=== PATIENT | male | born 1975 | race Caucasian/White ===

== ENCOUNTER → 2018-12-02 | Outpatient (CLI) | payer OTHER ==
--- NOTE | 2018-12-02 08:46 | RADIOLOGY IMAGING REPORT ---
FAC[facility] PATIENT NAME: Cordell Martin : 1975 MR: [id number] V: [id number] EXAM DATE: ORDERING PHYSICIAN: LOBITO TRIPP TECHNOLOGIST: Location: [facility] - [place], [place] Patient: Cordell Martin : 1975 Visit/Account:[id number] Date of Sevice: 12/02/2018 Testicular ultrasound. HISTORY: Right epididymal head mass on examination. COMPARISON: None. Right testicular length: 4.7 cm. Right intratesticular blood flow: Normal. Right hydrocele: Small. Right varicocele: No. Right microlithiasis: No. Right epididymal head thickness: 2.0 cm. No right intratesticular masses. Left testicular length: 4.6 cm. Left testicular blood flow: Normal. Left hydrocele: Small. Left varicocele: Small. Left microlithiasis: No. Left epididymal head thickness: 2.0 cm. No left intratesticular masses. The epididymal heads are mildly thickened bilaterally. A 3 mm cyst is present in the right epididyma l head. A small epididymal appendix is present on the right. A small amount of fluid partially surr ounds each testis. Left epididymal veins are mildly enlarged. IMPRESSION: Mild thickening of the epididymal head suggesting chronic epididymitis. 3 mm right epididymal head cyst. Small bilateral hydroceles. Small left varicocele. Otherwise negative testes. Report Dictated By: Oscar Burden MD at 12/02/2018 8:37 AM Report E-Signed By: Oscar Burden MD at 12/02/2018 8:41 AM WSN:[id number]
== END ==
LOC: US 07:43
PROVIDERS: ATTEND Urology
DX: N45.1 Epididymitis (principal); N50.3 Cyst of epididymis; N43.2 Other hydrocele; I86.1 Scrotal varices
CPT/HCPCS: 76870